=== PATIENT | male | born 1995 | race Caucasian/White ===

== ENCOUNTER 2018-11-24 04:17 | Emergency (ER) | payer SELFPAY ==
[~2018-11-24] VITALS: Ht 182.9 cm; Wt 79.4 kg
[2018-11-24 04:25] VITALS: BP 151/89
== END 2018-11-24 06:00 | disposition left against medical advice (07) ==
LOC: ER 04:17
DX: K08.89 Other specified disorders of teeth and supporting structures (principal); Z53.21 Procedure and treatment not carried out due to patient leaving prior to being seen by health care provider